=== PATIENT | female | born 1995 ===

== ENCOUNTER → 2016-12-17 | Outpatient (REF) | payer OTHER ==
[~2016-12-17] MED LIST: ACET50TA PO; COLA100C3 PO; IBUP80TA PO; NUPE1OIN2 TOP; PRENTAB55 PO
== END ==
LOC: M SFHCLERA 15:00
PROVIDERS: ATTEND Nurse Practitioner Family
DX: R30.0 Dysuria (principal)